=== PATIENT | male | born 1980 | race African-American/Black ===

== ENCOUNTER 2022-11-19 09:58 | Inpatient (IN) | payer OTHER ==
[2022-11-19 12:21] LABS: BASO % 1.1 % (0-2.0); EOS % 2.3 % (0-4.5); HEMATOCRIT 42.9 % (35.4-49); HEMOGLOBIN 13.8 GM/dL (11.7-16.9); LYMPH % 26.7 % (8-40); MCH 29.3 pg (25.7-33.7); MCHC 32.3 g/dl (32.0-35.9); MEAN CELL VOLUME 90.9 fl (80-96); MEAN PLT VOLUME 7.8 fl (7.5-11.1); MONO % 5.7 % (3.8-10.2); NEUT % 64.2 % (42.8-82.8); PLATELET COUNT 291 10^3/uL (134-434); RBC 4.72 M/mm3 (4.00-5.60); RDW 14.2 % (11.9-15.9)
[2022-11-19 12:29] LABS: INR 1.02 (0.83-1.09); PROTHROMBIN TIME (PATIENT) 11.8 SEC (9.7-13.0)
[2022-11-19 12:32] LABS: ACTIVATED PTT 28.5 SECONDS (25.2-36.5)
[2022-11-19] MEDS ORDERED: ACETAMINOPHEN 1000 MG/100 ML BAG IVPB ONE (13:20)
[2022-11-19] MEDS ORDERED: ACETAMINOPHEN INJECTION 100 ML IVPB ONE (13:22)
[2022-11-19 13:32] LABS: POTASSIUM 4.2 mmol/L (3.5-5.1)
[2022-11-19 13:39] LABS: ALBUMIN 3.6 g/dl (3.4-5.0); CALCIUM 9.9 mg/dL (8.5-10.1)
[2022-11-19 13:40] LABS: BLOOD UREA NITROGEN 8.8 mg/dL (7-18)
[2022-11-19 13:43] LABS: CREATININE 0.9 mg/dL (0.55-1.3)
[2022-11-19 13:44] LABS: BILIRUBIN,TOTAL 0.5 mg/dL (0.2-1); TOT PROT 7.6 g/dl (6.4-8.2)
[2022-11-19 14:36] LABS: EPI CELLS 1 /uL (0-25.1); HYALINE CASTS 2 /uL (0-3.1); URINE APPEARANCE CLOUDY; URINE BACTERIA >9,000 /uL (0-1359); URINE BILIRUBIN NEGATIVE (NEGATIVE); URINE COLOR YELLOW; URINE GLUCOSE (UA) NEGATIVE (NEGATIVE); URINE KETONE NEGATIVE (NEGATIVE); URINE LEUK ESTERASE 2+ (NEGATIVE); URINE NITRITE POSITIVE (NEGATIVE); URINE PROTEIN 2+ (NEGATIVE); URINE RBC 998 /uL (0-23.9); URINE WBC 822 /uL (0-25.8)
[2022-11-19] MEDS ORDERED: morphine CARPU-JECT 4 MG/1 ML DISP.SYRIN IVPUSH ONE (14:38)
[2022-11-19] MEDS ORDERED: morphine SULFATE 4 MG/ML VIAL ONE (14:38)
[2022-11-19] MEDS ORDERED: CEFTRIAXONE 1 GM/50 ML BAG ONE (16:10)
[2022-11-19] MEDS: CEFTRIAXONE 1 GM in DEXTROSE 5%-WATER - 50 ML IVPB SCH (17:06)
[2022-11-19 18:55] LABS: EPI CELLS >36 /uL (0-25.1); HYALINE CASTS 8 /uL (0-3.1); URINE APPEARANCE Turbid; URINE BACTERIA >9,000 /uL (0-1359); URINE BILIRUBIN Negative (NEGATIVE); URINE COLOR Yellow; URINE GLUCOSE (UA) Negative (NEGATIVE); URINE KETONE Negative (NEGATIVE); URINE LEUK ESTERASE Small (NEGATIVE); URINE NITRITE Positive (NEGATIVE); URINE PROTEIN 100 (NEGATIVE); URINE RBC 356 /uL (0-23.9); URINE UROBILINOGEN 0.2 mg/dL (0.2-1.0); URINE WBC 1898 /uL (0-25.8)
[2022-11-19 19:06] LABS: URINE CRYSTALS NONE SEEN /hpf
[2022-11-19 19:13] VITALS: BMI 21.9
[2022-11-19] MEDS: ACETAMINOPHEN 325 MG TABLET (FP) PO PRN (21:20)
[2022-11-19] MEDS: HEPARIN NA (PORCINE) 5,000 UNITS/ML 1ML VIAL SQ SCH (21:21)
[2022-11-19] MEDS: OXYBUTYNIN CHLORIDE 5 MG TABLET PO SCH (21:45)
[2022-11-20] MEDS ORDERED: LORazepam 2 MG/ML SDV VIAL IVPUSH ONE (01:01)
[2022-11-20] MEDS ORDERED: LIDOCAINE HCL 5% TOP OINTMENT 50 GM TUBE TP ONE (01:30)
[2022-11-20] MEDS: ACETAMINOPHEN 325 MG TABLET (FP) PO PRN ×2 (06:10→22:09)
[2022-11-20 07:12] LABS: EOS % 4.2 % (0-4.5); HEMOGLOBIN 12.3 GM/dL (11.7-16.9); LYMPH % 29.4 % (8-40); MCH 29.2 pg (25.7-33.7); MCHC 32.5 g/dl (32.0-35.9); MEAN PLT VOLUME 7.8 fl (7.5-11.1); MONO % 6.6 % (3.8-10.2); NEUT % 58.8 % (42.8-82.8); PLATELET COUNT 264 10^3/uL (134-434); RBC 4.22 M/mm3 (4.00-5.60); RDW 14.1 % (11.9-15.9); WHITE BLOOD COUNT 6.9 K/mm3 (4.0-10.0)
[2022-11-20 07:38] LABS: POTASSIUM 4.2 mmol/L (3.5-5.1)
[2022-11-20 07:49] LABS: ALBUMIN 3.1 g/dl (3.4-5.0); BLOOD UREA NITROGEN 8.2 mg/dL (7-18); CALCIUM 9.1 mg/dL (8.5-10.1)
[2022-11-20 07:53] LABS: BILIRUBIN,TOTAL 0.6 mg/dL (0.2-1); CREATININE 0.9 mg/dL (0.55-1.3)
[2022-11-20 07:54] LABS: TOT PROT 6.4 g/dl (6.4-8.2)
[2022-11-20] MEDS: HEPARIN NA (PORCINE) 5,000 UNITS/ML 1ML VIAL SQ SCH ×2 (09:11→22:04)
[2022-11-20] MEDS: CEFTRIAXONE 1 GM in DEXTROSE 5%-WATER - 50 ML IVPB SCH (09:11)
[2022-11-20] MEDS: OXYBUTYNIN CHLORIDE 5 MG TABLET PO SCH ×2 (09:11→22:05)
[2022-11-20] MEDS ORDERED: LIDOCAINE HCL 5% TOP OINTMENT 50 GM TUBE TP PRN (10:47)
[2022-11-21] MEDS: HEPARIN NA (PORCINE) 5,000 UNITS/ML 1ML VIAL SQ SCH ×2 (09:22→21:05)
[2022-11-21] MEDS: CEFTRIAXONE 1 GM in DEXTROSE 5%-WATER - 50 ML IVPB SCH (09:22)
[2022-11-21] MEDS: OXYBUTYNIN CHLORIDE 5 MG TABLET PO SCH ×2 (09:23→21:05)
[2022-11-21] MEDS ORDERED: PATIENT'S OWN MEDICATION (NON-FORMULARY) (Oxybutynin Chloride [Oxybutynin Chloride Er] 5 M PO SCH (10:00)
[2022-11-21] MEDS ORDERED: AZITHROMYCIN 500 MG TABLET PO ONE (10:00)
[2022-11-21] MEDS: SENNOSIDES 8.6MG TABLET (FP) PO SCH ×2 (12:25→21:05)
[2022-11-21] MEDS ORDERED: ACETAMINOPHEN 325 MG TABLET (FP) PO PRN (14:34)
[2022-11-22 07:12] VITALS: BP 112/59; PULSE 55; RESP 18; TEMP 97.9
[2022-11-22] MEDS: SENNOSIDES 8.6MG TABLET (FP) PO SCH (11:26)
[2022-11-22] MEDS: HEPARIN NA (PORCINE) 5,000 UNITS/ML 1ML VIAL SQ SCH (11:26)
[2022-11-22] MEDS: OXYBUTYNIN CHLORIDE 5 MG TABLET PO SCH (11:26)
== END 2022-11-22 11:15 | disposition home or self-care (01) | DRG 466 ==
LOC: JER 09:58 → JERBED 14:48 → J4S 19:06 → J8W 11-21 13:44
PROVIDERS: ADMIT Internal Medicine; ATTEND Family Medicine
DX: T83.518A Infection and inflammatory reaction due to other urinary catheter, initial encounter (principal); N39.0 Urinary tract infection, site not specified; S37.33XA Laceration of urethra, initial encounter; F17.210 Nicotine dependence, cigarettes, uncomplicated; K60.4 Rectal fistula; N48.89 Other specified disorders of penis; Y83.9 Surgical procedure, unspecified as the cause of abnormal reaction of the patient, or of later complication, without mention of misadventure at the time of the procedure; T14.90XA Injury, unspecified, initial encounter; X58.XXXA Exposure to other specified factors, initial encounter; Y93.9 Activity, unspecified; Y92.89 Other specified places as the place of occurrence of the external cause; Y99.9 Unspecified external cause status
CPT/HCPCS: 36415; 74177-TC; 80053; 81003; 83605; 83880; 85025; 85610; 85730; 87086; 87186; 87491; 87591; 93005; 93010; 93970-TC; 99285-25; J1644; Q9967

== ENCOUNTER 2022-11-26 11:02 | Observation (INO) | payer OTHER ==
[2022-11-26] MEDS ORDERED: ACETAMINOPHEN 1000 MG/100 ML BAG IVPB ONE (11:45)
[2022-11-26] MEDS ORDERED: OXYBUTYNIN CHLORIDE 5 MG TABLET PO ONE (11:45)
[2022-11-26] MEDS ORDERED: ACETAMINOPHEN INJECTION 100 ML IVPB ONE (12:22)
[2022-11-26 12:36] LABS: BASO % 1.3 % (0-2.0); EOS % 5.1 % (0-4.5); HEMOGLOBIN 13.3 GM/dL (11.7-16.9); LYMPH % 40.4 % (8-40); MCH 29.2 pg (25.7-33.7); MCHC 32.5 g/dl (32.0-35.9); MEAN CELL VOLUME 89.8 fl (80-96); MEAN PLT VOLUME 7.4 fl (7.5-11.1); MONO % 7.4 % (3.8-10.2); NEUT % 45.8 % (42.8-82.8); PLATELET COUNT 337 10^3/uL (134-434); RBC 4.57 M/mm3 (4.00-5.60); RDW 14.3 % (11.9-15.9); WHITE BLOOD COUNT 4.8 K/mm3 (4.0-10.0)
[2022-11-26 13:00] LABS: POTASSIUM 4.3 mmol/L (3.5-5.1)
[2022-11-26 13:02] LABS: CALCIUM 9.9 mg/dL (8.5-10.1)
[2022-11-26 13:07] LABS: BILIRUBIN,TOTAL 0.4 mg/dL (0.2-1); TOT PROT 8.1 g/dl (6.4-8.2)
[2022-11-26 13:40] LABS: EPI CELLS 3 /uL (0-25.1); HYALINE CASTS 3 /uL (0-3.1); PH,URINE 5.5 (5.0-8.0); URINE APPEARANCE TURBID; URINE BACTERIA 8858 /uL (0-1359); URINE BILIRUBIN NEGATIVE (NEGATIVE); URINE COLOR DK YELLOW; URINE GLUCOSE (UA) NEGATIVE (NEGATIVE); URINE KETONE TRACE (NEGATIVE); URINE LEUK ESTERASE 3+ (NEGATIVE); URINE NITRITE POSITIVE (NEGATIVE); URINE PROTEIN 3+ (NEGATIVE); URINE RBC 2113 /uL (0-23.9); URINE WBC 3442 /uL (0-25.8)
[2022-11-26 13:54] LABS: URINE CRYSTALS NO SEEN /hpf; YEAST MODERATE (NEGATIVE)
[2022-11-26] MEDS ORDERED: PHENAZOPYRIDINE HCL 100 MG TABLET (FP) PO ONE (14:54)
[2022-11-26] MEDS ORDERED: PHENAZOPYRIDINE HCL 100 MG TABLET (FP) ONE (15:12)
[2022-11-26] MEDS ORDERED: TAMSULOSIN HCL 0.4 MG CAP PO ONE (20:12)
[2022-11-26] MEDS ORDERED: TAMSULOSIN HCL 0.4 MG CAP ONE (20:14)
[2022-11-26] MEDS ORDERED: DOCUSATE SODIUM 100 MG CAPSULE (FP) PO PRN (23:18)
[2022-11-26] MEDS ORDERED: BACITRACIN 0.9 GM PACKET TP ONE (23:25)
[2022-11-27] MEDS: OXYBUTYNIN CHLORIDE 5 MG TABLET PO SCH ×3 (00:19→21:48)
[2022-11-27] MEDS ORDERED: ACETAMINOPHEN INJECTION 100 ML IVPB ONE (02:19)
[2022-11-27] MEDS: ACETAMINOPHEN 1000 MG/100 ML BAG IVPB PRN ×3 (02:45→22:30)
[2022-11-27] MEDS ORDERED: PHENAZOPYRIDINE HCL 100 MG TABLET (FP) ONE (04:10)
[2022-11-27] MEDS ORDERED: PHENAZOPYRIDINE HCL 100 MG TABLET (FP) PO ONE (04:14)
[2022-11-27] MEDS ORDERED: morphine CARPU-JECT 2 MG/1 ML DISP.SYRIN IVPUSH ONE (04:46)
[2022-11-27] MEDS ORDERED: KETOROLAC TROMETHAMINE 15 MG/ML VIAL IVPUSH ONE (06:03)
[2022-11-27] MEDS: SODIUM CHLORIDE 1,000 ML IV SCH (06:14)
[2022-11-27 07:26] LABS: BASO % 1.1 % (0-2.0); EOS % 5.6 % (0-4.5); HEMATOCRIT 34.6 % (35.4-49); HEMOGLOBIN 11.5 GM/dL (11.7-16.9); LYMPH % 33.3 % (8-40); MCH 29.8 pg (25.7-33.7); MCHC 33.3 g/dl (32.0-35.9); MEAN CELL VOLUME 89.4 fl (80-96); MEAN PLT VOLUME 7.2 fl (7.5-11.1); MONO % 7.6 % (3.8-10.2); NEUT % 52.4 % (42.8-82.8); PLATELET COUNT 274 10^3/uL (134-434); RBC 3.87 M/mm3 (4.00-5.60); RDW 14.2 % (11.9-15.9); WHITE BLOOD COUNT 4.7 K/mm3 (4.0-10.0)
[2022-11-27 07:42] LABS: BLOOD UREA NITROGEN 10.5 mg/dL (7-18); CALCIUM 8.8 mg/dL (8.5-10.1); MAGNESIUM 1.6 mg/dL (1.8-2.4)
[2022-11-27] MEDS ORDERED: MAGNESIUM SULF 50% (8.12 MEQ/2 ML-1 GM VIAL) IVPB ONE (07:48)
[2022-11-27] MEDS ORDERED: MAGNESIUM SULFATE IN WATER 2 GM/50 ML IVPB IVPB ONE (08:11)
[2022-11-27] MEDS ORDERED: ASCORBIC ACID 500 MG TABLET (FP) ONE (09:18)
[2022-11-27] MEDS ORDERED: FERROUS SO4 325 MG TABLET (FP) ONE (09:18)
[2022-11-27] MEDS: FERROUS SO4 325 MG TABLET (FP) PO SCH (09:32)
[2022-11-27] MEDS: ASCORBIC ACID 500 MG TABLET (FP) PO SCH (09:32)
[2022-11-27 14:28] VITALS: BMI 22.0
[2022-11-27] MEDS ORDERED: ACETAMINOPHEN 325 MG TABLET (FP) PO PRN (23:18)
[2022-11-28 04:17] VITALS: RESP 18
[2022-11-28] MEDS: SODIUM CHLORIDE 1,000 ML IV SCH (06:16)
[2022-11-28] MEDS: OXYBUTYNIN CHLORIDE 5 MG TABLET PO SCH (09:16)
[2022-11-28] MEDS: ASCORBIC ACID 500 MG TABLET (FP) PO SCH (09:16)
[2022-11-28] MEDS: FERROUS SO4 325 MG TABLET (FP) PO SCH (09:16)
[2022-11-28 14:08] VITALS: BP 117/83; PULSE 77; TEMP 98.8
== END 2022-11-28 16:54 | disposition home or self-care (01) ==
LOC: JER 11:02 → JERBED 15:28 → J6S 11-27 12:29
PROVIDERS: ADMIT Family Medicine; ATTEND Family Medicine
PROC: 3E033NZ Introduction of Analgesics, Hypnotics, Sedatives into Peripheral Vein, Percutaneous Approach (ICD-10-PCS; principal; 2022-11-26)
PROC: 3E0333Z Introduction of Anti-inflammatory into Peripheral Vein, Percutaneous Approach (ICD-10-PCS; 2022-11-26)
PROC: 3E03329 Introduction of Other Anti-infective into Peripheral Vein, Percutaneous Approach (ICD-10-PCS; 2022-11-26)
PROC: 3E0337Z Introduction of Electrolytic and Water Balance Substance into Peripheral Vein, Percutaneous Approach (ICD-10-PCS; 2022-11-26)
PROC: 0T2BX0Z Change Drainage Device in Bladder, External Approach (ICD-10-PCS; 2022-11-26)
PROC: 0T2BX0Z Change Drainage Device in Bladder, External Approach (ICD-10-PCS; 2022-11-26)
DX: N39.0 Urinary tract infection, site not specified (principal); N42.89 Other specified disorders of prostate; Z93.3 Colostomy status; F17.210 Nicotine dependence, cigarettes, uncomplicated; S36.503A Unspecified injury of sigmoid colon, initial encounter; S31.609A Unspecified open wound of abdominal wall, unspecified quadrant with penetration into peritoneal cavity, initial encounter; N36.9 Urethral disorder, unspecified; W19.XXXA Unspecified fall, initial encounter; Y93.89 Activity, other specified; Y92.89 Other specified places as the place of occurrence of the external cause
CPT/HCPCS: 36415; 51702; 51705; 80048; 80053; 81003; 83735; 84100; 85025; 87086; 87186; 93005; 93010; 96361; 96365; 96375; 99285-25; G0378

== ENCOUNTER 2022-12-15 23:56 | Emergency (ER) | payer OTHER ==
[2022-12-16 00:03] VITALS: BMI 22.0
[2022-12-16] MEDS ORDERED: diazePAM 5 MG TABLET PO ONE (01:47)
[2022-12-16] MEDS ORDERED: diazePAM 5 MG TABLET ONE (02:27)
[2022-12-16 02:38] LABS: BASO % 1.3 % (0-2.0); EOS % 6.6 % (0-4.5); HEMOGLOBIN 12.3 GM/dL (11.7-16.9); LYMPH % 35.6 % (8-40); MCH 29.7 pg (25.7-33.7); MCHC 34.1 g/dl (32.0-35.9); MEAN CELL VOLUME 87.3 fl (80-96); MEAN PLT VOLUME 7.1 fl (7.5-11.1); MONO % 6.7 % (3.8-10.2); NEUT % 49.8 % (42.8-82.8); PLATELET COUNT 289 10^3/uL (134-434); RBC 4.12 M/mm3 (4.00-5.60); RDW 14.8 % (11.9-15.9); WHITE BLOOD COUNT 5.7 K/mm3 (4.0-10.0)
[2022-12-16 02:41] LABS: EPI CELLS 2 /uL (0-25.1); HYALINE CASTS 0 /uL (0-3.1); PH,URINE 5.5 (5.0-8.0); URINE APPEARANCE CLOUDY; URINE BACTERIA 167 /uL (0-1359); URINE BILIRUBIN NEGATIVE (NEGATIVE); URINE COLOR YELLOW; URINE GLUCOSE (UA) NEGATIVE (NEGATIVE); URINE KETONE TRACE (NEGATIVE); URINE LEUK ESTERASE 2+ (NEGATIVE); URINE NITRITE NEGATIVE (NEGATIVE); URINE PROTEIN 4+ (NEGATIVE); URINE RBC 3986 /uL (0-23.9); URINE WBC 2555 /uL (0-25.8)
[2022-12-16 02:44] LABS: INR 1.02 (0.83-1.09); PROTHROMBIN TIME (PATIENT) 11.8 SEC (9.7-13.0)
[2022-12-16 02:47] LABS: ACTIVATED PTT 29.2 SECONDS (25.2-36.5)
[2022-12-16 02:57] LABS: POTASSIUM 4.1 mmol/L (3.5-5.1)
[2022-12-16 02:59] LABS: CALCIUM 9.2 mg/dL (8.5-10.1)
[2022-12-16 03:00] LABS: ALBUMIN 3.8 g/dl (3.4-5.0); BLOOD UREA NITROGEN 11.3 mg/dL (7-18)
[2022-12-16 03:03] LABS: CREATININE 0.9 mg/dL (0.55-1.3)
[2022-12-16 03:05] LABS: BILIRUBIN,TOTAL 0.4 mg/dL (0.2-1); TOT PROT 7.4 g/dl (6.4-8.2)
[2022-12-16 04:53] LABS: EPI CELLS 5 /uL (0-25.1); HYALINE CASTS 2 /uL (0-3.1); PH,URINE 5.5 (5.0-8.0); URINE APPEARANCE CLOUDY; URINE BACTERIA 161 /uL (0-1359); URINE BILIRUBIN NEGATIVE (NEGATIVE); URINE COLOR ORANGE; URINE GLUCOSE (UA) NEGATIVE (NEGATIVE); URINE KETONE TRACE (NEGATIVE); URINE LEUK ESTERASE 2+ (NEGATIVE); URINE NITRITE NEGATIVE (NEGATIVE); URINE PROTEIN 4+ (NEGATIVE); URINE RBC 4456 /uL (0-23.9); URINE WBC 2422 /uL (0-25.8)
[2022-12-16 05:04] VITALS: BP 109/68; PULSE 70; RESP 14; TEMP 97.7
[2022-12-16 08:00] LABS: URINE CRYSTALS NONE SEEN /hpf; YEAST FEW (NEGATIVE)
== END 2022-12-16 05:30 | disposition home or self-care (01) ==
LOC: JER 23:56
DX: N39.0 Urinary tract infection, site not specified (principal); N32.89 Other specified disorders of bladder; R31.9 Hematuria, unspecified
CPT/HCPCS: 36415; 80053; 81003; 85025; 85610; 85730; 86850; 86900; 86901; 87077; 87086; 87186; 99283-25

== ENCOUNTER 2023-07-04 05:57 | Emergency (ER) | payer OTHER ==
[2023-07-04 06:10] VITALS: BP 124/75; PULSE 92; RESP 18; TEMP 98.1; BMI 21.1
[2023-07-04 08:06] LABS: BASO % 0.3 % (0-2.0); EOS % 4.1 % (0-4.5); HEMATOCRIT 36.7 % (35.4-49); HEMOGLOBIN 12.5 GM/dL (11.7-16.9); LYMPH % 32.4 % (8-40); MCH 31.4 pg (25.7-33.7); MCHC 34.2 g/dl (32.0-35.9); MEAN CELL VOLUME 91.9 fl (80-96); MEAN PLT VOLUME 7.4 fl (7.5-11.1); MONO % 6.4 % (3.8-10.2); NEUT % 56.8 % (42.8-82.8); PLATELET COUNT 313 10^3/uL (134-434); RBC 3.99 M/mm3 (4.00-5.60); RDW 14.3 % (11.9-15.9); WHITE BLOOD COUNT 5.5 K/mm3 (4.0-10.0)
[2023-07-04 08:29] LABS: MAGNESIUM 1.7 mg/dL (1.8-2.4)
[2023-07-04 09:48] LABS: POTASSIUM 4.7 mmol/L (3.5-5.1)
[2023-07-04 09:50] LABS: CALCIUM 9.3 mg/dL (8.5-10.1)
[2023-07-04 09:51] LABS: ALBUMIN 3.6 g/dl (3.4-5.0); BLOOD UREA NITROGEN 11.6 mg/dL (7-18)
[2023-07-04 09:54] LABS: CREATININE 1.1 mg/dL (0.55-1.3)
[2023-07-04 09:55] LABS: BILIRUBIN,TOTAL 0.7 mg/dL (0.2-1); TOT PROT 6.9 g/dl (6.4-8.2)
== END 2023-07-04 10:05 | disposition home or self-care (01) ==
LOC: JER 05:57
DX: M62.838 Other muscle spasm (principal); G47.52 REM sleep behavior disorder
CPT/HCPCS: 36415; 80053; 82550; 82553; 83690; 83735; 84484; 85025; 93005; 93010; 99284-25

== ENCOUNTER 2023-07-15 16:09 | Emergency (ER) | payer OTHER ==
[2023-07-15 16:13] VITALS: BP 117/69; PULSE 91; RESP 18; TEMP 98.2; BMI 21.1
== END 2023-07-15 19:45 | disposition left against medical advice (07) ==
LOC: JERFT 16:09
DX: R21 Rash and other nonspecific skin eruption (principal)
CPT/HCPCS: 99281-25

== ENCOUNTER 2023-08-04 07:01 | Emergency (ER) | payer SELFPAY ==
[2023-08-04 07:27] VITALS: BP 100/65; PULSE 82; RESP 20; TEMP 98; BMI 25.8
== END 2023-08-04 07:39 | disposition home or self-care (01) ==
LOC: JER 07:01
DX: Z43.3 Encounter for attention to colostomy (principal)
CPT/HCPCS: 99282-25

== ENCOUNTER 2023-08-14 01:22 | Emergency (ER) | payer OTHER ==
[2023-08-14 01:28] VITALS: BP 99/67; PULSE 90; RESP 18; TEMP 97.7; BMI 21.1
== END 2023-08-14 03:27 | disposition home or self-care (01) ==
LOC: JER 01:22
DX: K94.09 Other complications of colostomy (principal)
CPT/HCPCS: 99283-25

== ENCOUNTER 2023-08-21 20:26 | Observation (INO) | payer OTHER ==
[2023-08-21 20:43] VITALS: RESP 18; BMI 21.1
[2023-08-21 23:53] LABS: BASO % 2.1 % (0-2.0); EOS % 3.8 % (0-4.5); HEMATOCRIT 36.9 % (35.4-49); HEMOGLOBIN 12.3 GM/dL (11.7-16.9); LYMPH % 35.4 % (8-40); MCH 31.3 pg (25.7-33.7); MCHC 33.4 g/dl (32.0-35.9); MEAN CELL VOLUME 93.7 fl (80-96); MEAN PLT VOLUME 7.2 fl (7.5-11.1); MONO % 8.7 % (3.8-10.2); PLATELET COUNT 311 10^3/uL (134-434); RBC 3.93 M/mm3 (4.00-5.60); RDW 14.3 % (11.9-15.9); WHITE BLOOD COUNT 6.6 K/mm3 (4.0-10.0)
[2023-08-21] MEDS: OXYBUTYNIN CHLORIDE 5 MG TABLET PO ONE (23:53)
[2023-08-21 23:55] LABS: EPI CELLS 2 /uL (0-25.1); HYALINE CASTS 2 /uL (0-3.1); PH,URINE 5.5 (5.0-8.0); URINE APPEARANCE CLOUDY; URINE BACTERIA >9,000 /uL (0-1359); URINE BILIRUBIN NEGATIVE (NEGATIVE); URINE COLOR DK YELLOW; URINE GLUCOSE (UA) NEGATIVE (NEGATIVE); URINE KETONE TRACE (NEGATIVE); URINE LEUK ESTERASE 1+ (NEGATIVE); URINE NITRITE POSITIVE (NEGATIVE); URINE PROTEIN 3+ (NEGATIVE); URINE WBC 525 /uL (0-25.8)
[2023-08-21 23:59] LABS: INR 0.94 (0.83-1.09); PROTHROMBIN TIME (PATIENT) 10.9 SEC (9.7-13.0)
[2023-08-22 00:02] LABS: ACTIVATED PTT 30.1 SECONDS (25.2-36.5)
[2023-08-22 00:10] LABS: POTASSIUM 4.3 mmol/L (3.5-5.1)
[2023-08-22 00:12] LABS: ALBUMIN 3.4 g/dl (3.4-5.0); BLOOD UREA NITROGEN 11.2 mg/dL (7-18); CALCIUM 9.4 mg/dL (8.5-10.1)
[2023-08-22 00:17] LABS: TOT PROT 6.8 g/dl (6.4-8.2)
[2023-08-22 00:19] LABS: BILIRUBIN,TOTAL 0.6 mg/dL (0.2-1)
[2023-08-22] MEDS ORDERED: valACYclovir HCL 500 MG TABLET (FP) ONE (01:21)
[2023-08-22] MEDS: valACYclovir HCL 500 MG TABLET (FP) PO ONE (01:24)
[2023-08-22] MEDS ORDERED: MEROPENEM 1 GM VIAL (RESTRICTED TO ID) IVPB ONE (03:21)
[2023-08-22] MEDS: MEROPENEM 1 GM in DEXTROSE 5%-WATER 100 ML IVPB ONE (03:29)
[2023-08-22 03:41] LABS: URINE CRYSTALS FEW /hpf; URINE RBC 57.3 /uL (0-23.9)
[2023-08-22] MEDS ORDERED: ACETAMINOPHEN 1000 MG/100 ML BAG IVPB PRN (04:22)
[2023-08-22] MEDS: LACTATED RINGERS SOLUTION 1000 ML INFUS.BAG IV ONE (04:47)
[2023-08-22] MEDS: LINEZOLID 600 MG PREMIX BAG 600 MG in PREMIX 300 IVPB ONE (05:17)
[2023-08-22 09:31] LABS: BASO % 1.7 % (0-2.0); HEMATOCRIT 33.8 % (35.4-49); HEMOGLOBIN 11.2 GM/dL (11.7-16.9); LYMPH % 33.4 % (8-40); MCH 31.1 pg (25.7-33.7); MEAN CELL VOLUME 94.3 fl (80-96); MEAN PLT VOLUME 7.5 fl (7.5-11.1); MONO % 9.3 % (3.8-10.2); NEUT % 51.6 % (42.8-82.8); PLATELET COUNT 261 10^3/uL (134-434); RBC 3.59 M/mm3 (4.00-5.60); RDW 13.9 % (11.9-15.9); WHITE BLOOD COUNT 6.4 K/mm3 (4.0-10.0)
[2023-08-22 09:42] LABS: INR 1.03 (0.83-1.09); PROTHROMBIN TIME (PATIENT) 11.9 SEC (9.7-13.0)
[2023-08-22 09:44] LABS: ACTIVATED PTT 30.1 SECONDS (25.2-36.5)
[2023-08-22 09:51] LABS: POTASSIUM 3.9 mmol/L (3.5-5.1)
[2023-08-22 09:55] LABS: BLOOD UREA NITROGEN 8.1 mg/dL (7-18); CALCIUM 8.6 mg/dL (8.5-10.1); MAGNESIUM 1.4 mg/dL (1.8-2.4)
[2023-08-22 09:58] LABS: CREATININE 1.1 mg/dL (0.55-1.3); PHOSPHOROUS 3.4 mg/dL (2.5-4.9)
[2023-08-22 14:34] VITALS: BP 104/67; PULSE 63; TEMP 98.3
[2023-08-22] MEDS ORDERED: SOLIFENACIN SUCCINATE 5 MG TAB PO SCH (15:15)
[2023-08-23] MEDS ORDERED: ACETAMINOPHEN 325 MG TABLET (FP) PO PRN (04:14)
== END 2023-08-22 15:21 | disposition left against medical advice (07) ==
LOC: JER 20:26 → UNDOADMOB 08-22 03:16 → INTOOBSV 08-22 03:16 → JERBED 08-22 03:16 → J5S 08-22 06:41 → JERBED 08-22 10:20 → J5S 08-22 10:20
PROVIDERS: ADMIT Internal Medicine; ATTEND Internal Medicine
PROC: 3E03329 Introduction of Other Anti-infective into Peripheral Vein, Percutaneous Approach (ICD-10-PCS; principal; 2023-08-22)
PROC: 3E0337Z Introduction of Electrolytic and Water Balance Substance into Peripheral Vein, Percutaneous Approach (ICD-10-PCS; 2023-08-22)
DX: N39.0 Urinary tract infection, site not specified (principal); K94.01 Colostomy hemorrhage; Z93.6 Other artificial openings of urinary tract status; B02.9 Zoster without complications; F17.210 Nicotine dependence, cigarettes, uncomplicated
CPT/HCPCS: 36415; 80048; 80053; 81003; 83735; 84100; 85025; 85610; 85730; 87086; 96361; 96365; 96367; 99285-25; G0378

== ENCOUNTER 2023-10-03 05:30 | Emergency (ER) | payer OTHER ==
[2023-10-03 05:34] VITALS: BP 116/75; PULSE 81; RESP 17; TEMP 97.7; BMI 21.7
[2023-10-03] MEDS: OXYBUTYNIN CHLORIDE 5 MG TABLET PO ONE (06:21)
== END 2023-10-03 06:36 | disposition home or self-care (01) ==
LOC: JER 05:30
DX: N32.89 Other specified disorders of bladder (principal)
CPT/HCPCS: 99283-25

== ENCOUNTER 2023-11-19 05:57 | Emergency (ER) | payer OTHER ==
[2023-11-19 06:02] VITALS: BP 111/74; PULSE 71; RESP 16; TEMP 97.8; BMI 21.7
== END 2023-11-19 06:28 | disposition home or self-care (01) ==
LOC: JER 05:57
DX: Z43.3 Encounter for attention to colostomy (principal)
CPT/HCPCS: 99283-25

== ENCOUNTER 2024-02-24 15:55 | Emergency (ER) | payer SELFPAY ==
[2024-02-24 16:04] VITALS: BP 131/83; PULSE 100; RESP 18; TEMP 98.5; BMI 21.1
[2024-02-24] MEDS: OXYBUTYNIN CHLORIDE 5 MG TABLET PO ONE (17:50)
[2024-02-24] MEDS ORDERED: CYCLOBENZAPRINE HCL 5 MG TABLET ONE (17:54)
[2024-02-24] MEDS: CYCLOBENZAPRINE HCL 10 MG TABLET (FP) PO ONE (18:02)
[2024-02-24 19:02] LABS: HIV INTERPRETATION NEGATIVE (NEGATIVE)
[2024-02-24 21:42] LABS: BASO % 2.1 % (0-2.0); EOS % 6.5 % (0-4.5); HEMATOCRIT 36.7 % (35.4-49); HEMOGLOBIN 12.1 GM/dL (11.7-16.9); LYMPH % 35.9 % (8-40); MCH 30.7 pg (25.7-33.7); MEAN CELL VOLUME 92.9 fl (80-96); MEAN PLT VOLUME 6.7 fl (7.5-11.1); MONO % 7.8 % (3.8-10.2); NEUT % 47.7 % (42.8-82.8); PLATELET COUNT 299 10^3/uL (134-434); RBC 3.95 M/mm3 (4.00-5.60); RDW 14.2 % (11.9-15.9); WHITE BLOOD COUNT 4.8 K/mm3 (4.0-10.0)
[2024-02-24 21:52] LABS: EPI CELLS >36 /uL (0-25.1); HYALINE CASTS 15 /uL (0-3.1); PH,URINE 7.5 (5.0-8.0); URINE APPEARANCE CLOUDY; URINE BACTERIA >9,000 /uL (0-1359); URINE BILIRUBIN NEGATIVE (NEGATIVE); URINE COLOR YELLOW; URINE GLUCOSE (UA) NEGATIVE (NEGATIVE); URINE KETONE NEGATIVE (NEGATIVE); URINE LEUK ESTERASE 3+ (NEGATIVE); URINE NITRITE POSITIVE (NEGATIVE); URINE PROTEIN 2+ (NEGATIVE); URINE RBC 148 /uL (0-23.9); URINE WBC 3298 /uL (0-25.8)
[2024-02-24 22:06] LABS: POTASSIUM 4.3 mmol/L (3.5-5.1)
[2024-02-24 22:08] LABS: CALCIUM 8.7 mg/dL (8.5-10.1)
[2024-02-24 22:09] LABS: ALBUMIN 3.6 g/dl (3.4-5.0); BLOOD UREA NITROGEN 8.5 mg/dL (7-18)
[2024-02-24 22:14] LABS: BILIRUBIN,TOTAL 0.5 mg/dL (0.2-1); TOT PROT 6.8 g/dl (6.4-8.2)
[2024-02-24] MEDS: LINEZOLID 600 MG TABLET (RESTRICTED TO ID) PO ONE (23:30)
== END 2024-02-25 00:04 | disposition home or self-care (01) ==
LOC: JER 15:55
DX: R30.0 Dysuria (principal); N39.0 Urinary tract infection, site not specified; R10.30 Lower abdominal pain, unspecified
CPT/HCPCS: 36415; 80053; 81003; 85025; 86803; 87086; 87186; 87389; 99283-25

== ENCOUNTER → 2024-03-11 | Emergency (ER) | payer OTHER ==
[2024-03-11 16:31] VITALS: BP 136/98; PULSE 97; RESP 18; TEMP 98.8; BMI 20.9
== END ==
LOC: JER 14:17
DX: Z53.21 Procedure and treatment not carried out due to patient leaving prior to being seen by health care provider (principal)
CPT/HCPCS: 99281-25